=== PATIENT | male | born 1950 | race Caucasian/White ===

== ENCOUNTER 2017-12-28 09:11 | Emergency (ER) | payer MEDICARE ==
[~2017-12-28 09:11] MED LIST: ATOR20TA PO; BUPR100CR PO; FISH500C PO; NEXI40CA PO; PROZ20CA11 PO; QUET100 PO; SERO200T2 PO; TAB-TAB PO
[2017-12-28] MEDS ORDERED: IOHEXOL 350 MG/ML 10 ML VIAL (for RAD DIAG) IVCONTRAST ONE (09:12)
[2017-12-28 09:18] VITALS: BP 166/75; PULSE 49; RESP 16; TEMP 97.5; O2SAT 100
--- NOTE | 2017-12-28 10:02 | RADRPT ---
EXAM DATE/TIME: 12/28/2017 09:53 [facility] COMPARISON: No previous studies available for comparison. INDICATIONS : Chest pain. Cough. Bradycardia. MEDICAL HISTORY : Hypertension. SURGICAL HISTORY : Right ankle repair. ENCOUNTER: Initial ACUITY: 1 day PAIN SCORE: 9/10 LOCATION: middle chest FINDINGS: PA and lateral views of the chest demonstrate the lungs to be symmetrically aerated without evidence of mass, infiltrate or effusion. The cardiomediastinal contours are unremarkable. Osseous structure s are intact. CONCLUSION: No acute disease. Ray Kim MD on December 28, 2017 at 9:59 Board Certified Radiologist. This report was verified electronically.
[2017-12-28 10:54] LABS: BILIRUBIN, URINE NEG (NEG); BLOOD, URINE NEG (NEG); GLUCOSE,URINE NEG (NEG); KETONE, URINE NEG (NEG); MUCUS URINE FEW /lpf (OCC); NITRITE,URINE NEG (NEG); PH, URINE 7.5 (5.0-8.5); URINE COLOR YELLOW (YELLW/STRAW); URINE LEUKOCYTE ESTERASE NEG (NEG)
[2017-12-28 11:01] VITALS: BP 175/80; PULSE 48; RESP 18; O2SAT 98
[2017-12-28 11:05] LABS: ALKALINE PHOSPHATASE 96 U/L (45-117); TOTAL BILIRUBIN ADULT 0.7 MG/DL (0.2-1.0); TOTAL PROTEIN 7.4 GM/DL (6.4-8.2)
[2017-12-28 11:09] LABS: ALBUMIN 3.9 GM/DL (3.4-5.0); ALT (GPT) 28 U/L (12-78); AST (GOT) 37 U/L (15-37); BICARBONATE 26.5 MEQ/L (21.0-32.0); BLOOD UREA NITROGEN 12 MG/DL (7-18); CALCIUM 9.2 MG/DL (8.5-10.1); CHLORIDE 107 MEQ/L (98-107); CREATININE 1.12 MG/DL (0.60-1.30); GLOMERULAR FILTRATION RATE 65 ML/MIN (>89); GLUCOSE,RANDOM 81 MG/DL (74-106); SODIUM (NA) 141 MEQ/L (136-145)
--- NOTE | 2017-12-28 11:10 | PD ---
HPI Chief Complaint: GI Complaint Time Seen by Provider: 11:03 Travel History International Travel<30 days: No Contact w/Intl Traveler<30days: No Traveled to known affect area: No History of Present Illness HPI 67-year-old male with history of Pang's esophagus presents emergency department for evaluation of worsening burning in his chest and stomach pain. Patient states this is been worsening over the last month. He went to his GI specialist Dr. Menendez and and had an endoscopy 2 weeks ago. He was noted to have profound bradycardia and was sent to follow-up with Dr. Garcia, his data processing consultant. He states that they did not find anything new. He states that he contacted his GI specialist today because the burning is just getting intolerable. He states it is constant, 10 out of 10. Denies any fever chills. No vomiting. No bowel changes. Patient has no other symptoms to report. PFSH Past Medical History Arthritis: Yes Asthma: Yes Autoimmune Disease: No Blood Disorders: No Bipolar Disorder: Yes Anxiety: Yes Depression: Yes Heart Rhythm Problems: Yes Cancer: No Cardiovascular Problems: Yes (afib) High Cholesterol: Yes (STATES HE TAKES A GREEN PILL FOR HIGH CHOLESTEROL) Chemotherapy: No COPD: No Cerebrovascular Accident: No Diabetes: No Diminished Hearing: No Endocrine: No Gastrointestinal Disorders: Yes GERD: Yes Glaucoma: No Genitourinary: Yes Headaches: Yes Hepatitis: No Hiatal Hernia: No Heparin Induced Thrombocytopen: No Hypertension: Yes Immune Disorder: No Kidney Stones: No Medical other: Yes (GRED) Musculoskeletal: Yes Neurologic: Yes Psychiatric: Yes Reproductive: No Respiratory: Yes Immunizations Current: Yes Migraines: No Radiation Therapy: No Renal Failure: No Seizures: No Sickle Cell Disease: No Sleep Apnea: No Thyroid Disease: No Ulcer: No Past Surgical History Abdominal Aneurysm Repair: No Abdominal Surgery: No AICD: No Appendectomy: No Arteriovenous Shunt: No Cardiac Surgery: No Cholecystectomy: No Ear Surgery: No Endocrine Surgery: No Eye Surgery: No Genitourinary Surgery: No Gynecologic Surgery: No Insulin Pump: No Joint Replacement: No Neurologic Surgery: No Oral Surgery: No Pacemaker: No Thoracic Surgery: No Other Surgery: Yes (right foot neuroma removed ) Social History Alcohol Use: No Tobacco Use: Yes (QUIT LONG AGO) Substance Use: No Allergies-Medications (Allergen,Severity, Reaction): Coded Allergies: celecoxib (Unverified Allergy, Severe, RASH, 04/25/17) rofecoxib (Unverified Allergy, Severe, RASH, 04/25/17) Reported Meds & Prescriptions Reported Meds & Active Scripts Active Reported Lipitor (Atorvastatin Calcium) 20 Mg Tab 20 Mg PO HS Aciphex (Rabeprazole Sodium) 20 Mg Tab 20 Mg PO TID Dicyclomine (Dicyclomine HCl) 10 Mg Cap 10 Mg PO TID Reglan (Metoclopramide HCl) 10 Mg Tab 20 Mg PO TID Aspirin Adult Low Strength (Aspirin) 81 Mg Tabdr 81 Mg PO DAILY Lisinopril 10 Mg Tab 10 Mg PO BID Fish Oil 1200 mg ([place]-3 Fatty Acids) 360 Mg-1,200 Mg Cap 1 Cap PO BID Multiple Vitamin 1 Tab 1 Tab PO DAILY Review of Systems Except as stated in HPI: all other systems reviewed are Neg Physical Exam Narrative GENERAL: Well-nourished male patient with bizarre affect but in no acute distress. SKIN: Focused skin assessment warm/dry. HEAD: Atraumatic. Normocephalic. EYES: Pupils equal and round. No scleral icterus. No injection or drainage. ENT: No nasal bleeding or discharge. Mucous membranes pink and moist. NECK: Trachea midline. No JVD. CARDIOVASCULAR: Regular rate and rhythm. No murmur appreciated. RESPIRATORY: No accessory muscle use. Clear to auscultation. Breath sounds equal bilaterally. GASTROINTESTINAL: Abdomen soft, non-tender, nondistended. No guarding. No rebound tenderness. Hepatic and splenic margins not palpable. MUSCULOSKELETAL: No obvious deformities. No clubbing. No cyanosis. No edema. NEUROLOGICAL: Awake and alert. No obvious cranial nerve deficits. Motor grossly within normal limits. Normal speech. Data Data Last Documented VS Vital Signs Date Time Temp Pulse Resp B/P (MAP) Pulse Ox O2 Delivery O2 Flow Rate FiO2 12/28/17 13:33 47 18 158/75 (102) 99 Room Air 12/28/17 09:18 97.5 Orders Orders Electrocardiogram (12/28/17 ) Comprehensive Metabolic Panel (12/28/17 09:20) Lipase (12/28/17 09:20) Complete Blood Count With Diff (12/28/17 09:20) Urinalysis - C+S If Indicated (12/28/17 09:20) Chest, Pa & Lat (12/28/17 ) Act Partial Throm Time (Ptt) (12/28/17 09:20) Prothrombin Time / Inr (Pt) (12/28/17 09:20) Ct Abd/Pel W Iv Contrast(Rout) (12/28/17 ) Metoclopramide Inj (Reglan Inj) (12/28/17 11:30) Diphenhydramine Inj (Benadryl Inj) (12/28/17 11:30) Electrocardiogram (12/28/17 ) Troponin I (12/28/17 12:08) Ckmb (Isoenzyme) Profile (12/28/17 12:08) Iohexol 350 Inj (Omnipaque 350 Inj) (12/28/17 09:12) Al-Mag Hy-Si 40-40-4 Mg/Ml Liq (Mag-Al P (12/28/17 13:15) Lidocaine 2% Viscous (Xylocaine 2% Visco (12/28/17 13:15) CKMB (12/28/17 12:41) CKMB% (12/28/17 12:41) Ed Discharge Order (12/28/17 13:43) Labs Laboratory Tests Test 12/28/17 09:45 12/28/17 11:19 12/28/17 12:41 Urine Color YELLOW Urine Turbidity CLEAR Urine pH 7.5 Urine Specific [place] 1.019 Urine Protein TRACE mg/dL Urine Glucose (UA) NEG mg/dL Urine Ketones NEG mg/dL Urine Occult Blood NEG Urine Nitrite NEG Urine Bilirubin NEG Urine Urobilinogen LESS THAN 2.0 MG/DL Urine Leukocyte Esterase NEG Urine RBC 1 /hpf Urine WBC 1 /hpf Urine Mucus FEW /lpf Microscopic Urinalysis Comment CULT NOT INDICATED Blood Urea Nitrogen 12 MG/DL Creatinine 1.12 MG/DL Random Glucose 81 MG/DL Total Protein 7.4 GM/DL Albumin 3.9 GM/DL Calcium Level 9.2 MG/DL Alkaline Phosphatase 96 U/L Aspartate Amino Transf (AST/SGOT) 37 U/L Alanine Aminotransferase (ALT/SGPT) 28 U/L Total Bilirubin 0.7 MG/DL Sodium Level 141 MEQ/L Potassium Level 4.7 MEQ/L Chloride Level 107 MEQ/L Carbon Dioxide Level 26.5 MEQ/L Anion Gap 8 MEQ/L Estimat Glomerular Filtration Rate 65 ML/MIN Lipase 103 U/L White Blood Count 6.4 TH/MM3 Red Blood Count 4.59 MIL/MM3 Hemoglobin 14.8 GM/DL Hematocrit 43.5 % Mean Corpuscular Volume 94.8 FL Mean Corpuscular Hemoglobin 32.2 PG Mean Corpuscular Hemoglobin Concent 34.0 % Red Cell Distribution Width 13.6 % Platelet Count 199 TH/MM3 Mean Platelet Volume 9.4 FL Neutrophils (%) (Auto) 62.7 % Lymphocytes (%) (Auto) 24.3 % Monocytes (%) (Auto) 11.4 % Eosinophils (%) (Auto) 0.7 % Basophils (%) (Auto) 0.9 % Neutrophils # (Auto) 4.0 TH/MM3 Lymphocytes # (Auto) 1.6 TH/MM3 Monocytes # (Auto) 0.7 TH/MM3 Eosinophils # (Auto) 0.0 TH/MM3 Basophils # (Auto) 0.1 TH/MM3 CBC Comment DIFF FINAL Differential Comment Prothrombin Time 10.2 SEC Prothromb Time International Ratio 1.0 RATIO Activated Partial Thromboplast Time 23.1 SEC Total Creatine Kinase 129 U/L Creatine Kinase MB 1.5 NG/ML Troponin I 0.02 NG/ML MDM Medical Decision Making Medical Screen Exam Complete: Yes Emergency Medical Condition: Yes Medical Record Reviewed: Yes Differential Diagnosis Indigestion versus e esophagitis versus anxiety versus gastritis Narrative Course 67-year-old male presents emergency department for evaluation of abdominal pain and esophageal burning. Patient appears without distress. Vital signs are stable. Patient is noted to have bradycardia with flipped T waves in V3 through V6. I have contacted Dr. GARCIA because we have nothing to compare this to. He states this is normal for the patient and he will follow up with him in his office. Laboratory Tests Test 12/28/17 09:45 12/28/17 11:19 12/28/17 12:41 Urine Color YELLOW Urine Turbidity CLEAR Urine pH 7.5 Urine Specific [place] 1.019 Urine Protein TRACE mg/dL Urine Glucose (UA) NEG mg/dL Urine Ketones NEG mg/dL Urine Occult Blood NEG Urine Nitrite NEG Urine Bilirubin NEG Urine Urobilinogen LESS THAN 2.0 MG/DL Urine Leukocyte Esterase NEG Urine RBC 1 /hpf Urine WBC 1 /hpf Urine Mucus FEW /lpf Microscopic Urinalysis Comment CULT NOT INDICATED Blood Urea Nitrogen 12 MG/DL Creatinine 1.12 MG/DL Random Glucose 81 MG/DL Total Protein 7.4 GM/DL Albumin 3.9 GM/DL Calcium Level 9.2 MG/DL Alkaline Phosphatase 96 U/L Aspartate Amino Transf (AST/SGOT) 37 U/L Alanine Aminotransferase (ALT/SGPT) 28 U/L Total Bilirubin 0.7 MG/DL Sodium Level 141 MEQ/L Potassium Level 4.7 MEQ/L Chloride Level 107 MEQ/L Carbon Dioxide Level 26.5 MEQ/L Anion Gap 8 MEQ/L Estimat Glomerular Filtration Rate 65 ML/MIN Lipase 103 U/L White Blood Count 6.4 TH/MM3 Red Blood Count 4.59 MIL/MM3 Hemoglobin 14.8 GM/DL Hematocrit 43.5 % Mean Corpuscular Volume 94.8 FL Mean Corpuscular Hemoglobin 32.2 PG Mean Corpuscular Hemoglobin Concent 34.0 % Red Cell Distribution Width 13.6 % Platelet Count 199 TH/MM3 Mean Platelet Volume 9.4 FL Neutrophils (%) (Auto) 62.7 % Lymphocytes (%) (Auto) 24.3 % Monocytes (%) (Auto) 11.4 % Eosinophils (%) (Auto) 0.7 % Basophils (%) (Auto) 0.9 % Neutrophils # (Auto) 4.0 TH/MM3 Lymphocytes # (Auto) 1.6 TH/MM3 Monocytes # (Auto) 0.7 TH/MM3 Eosinophils # (Auto) 0.0 TH/MM3 Basophils # (Auto) 0.1 TH/MM3 CBC Comment DIFF FINAL Differential Comment Prothrombin Time 10.2 SEC Prothromb Time International Ratio 1.0 RATIO Activated Partial Thromboplast Time 23.1 SEC Total Creatine Kinase 129 U/L Creatine Kinase MB 1.5 NG/ML Troponin I 0.02 NG/ML Last Impressions Chest X-Ray 12/28/17 0000 Signed Impressions: Service Date/Time: December 09:53 - CONCLUSION: No acute disease. Ray Kim MD Abdomen/Pelvis CT 12/28/17 0000 Signed Impressions: Service Date/Time: December 12:09 - CONCLUSION: 1. No acute finding is identified within the abdomen or pelvis to explain the clinical symptoms. 2. There are multiple renal cysts bilaterally. The only indeterminate lesion is a 10 mm lesion at the left upper pole kidney. It does not have density measurements consistent with a simple cyst. Recommend correlating with any prior imaging studies that could confirm stability or offer additional characterization. If none are available consider a followup and further characterization with a renal ultrasound or a renal protocol MRI.. 3. Severe atherosclerotic disease. Refugio Turner MD Findings are discussed with the patient. He is encouraged to follow-up with primary care provider return immediately with acute worsening of symptoms. Diagnosis Primary Impression: Abdominal pain Qualified Codes: R10.13 - Epigastric pain Additional Impression: Bradycardia Referrals: [facility] Primary Care Physician Patient Instructions: Epigastric Pain (ED), General Instructions Additional Instructions: Follow-up with your primary care provider Continue all meds as already prescribed Follow-up with your atm servicer Follow-up with your data processing consultant Return immediately with any acute worsening symptoms Med/Other Pt SpecificInfo: No Change to Meds Disposition: 01 DISCHARGE HOME Condition: Stable HoustonEnriqueta GOEL Dec 28, 2017 11:10
[2017-12-28] MEDS ORDERED: diphenhydrAMINE HCL 50 MG/ML VIAL IV PUSH ONE (11:30)
[2017-12-28] MEDS ORDERED: METOCLOPRAMIDE HCL 10 MG/2 ML VIAL IV PUSH ONE (11:30)
[2017-12-28 11:40] LABS: BASOPHIL # 0.1 TH/MM3 (0-0.2); BASOPHIL % 0.9 % (0.0-2.0); EOSINOPHIL % 0.7 % (0.0-4.0); HEMATOCRIT 43.5 % (39.0-51.0); HEMOGLOBIN 14.8 GM/DL (13.0-17.0); LYMPH % 24.3 % (9.0-44.0); LYMPHOCYTE # 1.6 TH/MM3 (1.0-4.8); MEAN CELL VOLUME 94.8 FL (80.0-100.0); MEAN CORPUSCULAR HEMOGLOBIN 32.2 PG (27.0-34.0); MEAN PLATELET VOLUME 9.4 FL (7.0-11.0); MONO % 11.4 % (0.0-8.0); MONOCYTE # 0.7 TH/MM3 (0-0.9); NEUT % 62.7 % (16.0-70.0); PLATELET COUNT 199 TH/MM3 (150-450); RED BLOOD COUNT 4.59 MIL/MM3 (4.50-5.90); RED CELL DISTRIBUTION WIDTH 13.6 % (11.6-17.2); WHITE BLOOD COUNT 6.4 TH/MM3 (4.0-11.0)
[2017-12-28 11:50] LABS: PROTHROMBIN TIME - PATIENT 10.2 SEC (9.8-11.6)
[2017-12-28] MEDS ORDERED: ASPI81TA16 PO (12:00)
[2017-12-28] MEDS ORDERED: LISI10TA3 PO (12:00)
[2017-12-28] MEDS ORDERED: FISH1200 PO (12:00)
[2017-12-28] MEDS ORDERED: ACIP20TA19 PO (12:00)
[2017-12-28] MEDS ORDERED: REGL10TA5 PO (12:00)
[2017-12-28] MEDS ORDERED: MULTTAB67 PO (12:00)
[2017-12-28] MEDS ORDERED: LIPI20TA PO (12:00)
[2017-12-28] MEDS ORDERED: DICY10CA12 PO (12:00)
--- NOTE | 2017-12-28 12:39 | RADRPT ---
EXAM DATE/TIME: 12/28/2017 12:09 [facility] COMPARISON: No previous studies available for comparison. INDICATIONS : Abdomen pain, rectal pain. IV CONTRAST: 72 cc Omnipaque 350 (iohexol) IV ORAL CONTRAST: No oral contrast ingested. RADIATION DOSE: 6.67 CTDIvol (mGy) MEDICAL HISTORY : Cardiovascular disease. Hypertension. Asthma, Barretts esophagus SURGICAL HISTORY : None. ENCOUNTER: Initial ACUITY: 1 day PAIN SCALE: 9/10 LOCATION: Abdomen TECHNIQUE: Volumetric scanning of the abdomen and pelvis was performed. Using automated exposure control and ad justment of the mA and/or kV according to patient size, radiation dose was kept as low as reasonably achievable to obtain optimal diagnostic quality images. DICOM format image data is available electro nically for review and comparison. FINDINGS: LOWER LUNGS: The visualized lower lungs are clear. LIVER: Homogeneous density without lesion. There is no dilation of the biliary tree. No calcified gallston es. SPLEEN: Normal size without lesion. PANCREAS: Within normal limits. KIDNEYS: Normal in size and shape. There is no hydronephrosis or stone. In the right kidney there are several low-density lesions measuring up to 5.3 cm. On density measurements consistent with cysts. In the lef t kidney there are 4 low-density lesions measuring up to 4.2 cm. All except for one have density jolanta urements consistent with cysts. At the upper pole of the left kidney along the lateral cortex there i s a 10 mm low density lesion which has Hounsfield measurements in the mid 30s. ADRENAL GLANDS: Within normal limits. VASCULAR: There is no aortic aneurysm. There is severe atherosclerotic disease. BOWEL/MESENTERY: The stomach, small bowel, and colon demonstrate no acute abnormality. There is no free intraperitone al air or fluid. The appendix is normal. The rectum demonstrates no abnormality. ABDOMINAL WALL: Within normal limits. RETROPERITONEUM: There is no lymphadenopathy. BLADDER: No wall thickening or mass. REPRODUCTIVE: Within normal limits. INGUINAL: There is no lymphadenopathy or hernia. MUSCULOSKELETAL: There are degenerative changes of the lumbar spine with severe degenerative disc disease at L4-L5. CONCLUSION: 1. No acute finding is identified within the abdomen or pelvis to explain the clinical symptoms. 2. There are multiple renal cysts bilaterally. The only indeterminate lesion is a 10 mm lesion at the left upper pole kidney. It does not have density measurements consistent with a simple cyst. Recomme nd correlating with any prior imaging studies that could confirm stability or offer additional charac terization. If none are available consider a followup and further characterization with a renal ultra sound or a renal protocol MRI.. 3. Severe atherosclerotic disease. Refugio Turner MD on December 28, 2017 at 12:30 Board Certified Radiologist. This report was verified electronically.
[2017-12-28] MEDS ORDERED: LIDOCAINE VISCOUS 2% SOLN 15 ML UDC PO ONE (13:15)
[2017-12-28] MEDS ORDERED: ALUMINUM/MAGNESIUM/SIMETH 30 ML CUP PO ONE (13:15)
[2017-12-28 13:17] LABS: TROPONIN I 0.02 NG/ML (0.02-0.05)
[2017-12-28 13:33] VITALS: BP 158/75; PULSE 47; RESP 18; O2SAT 99
--- NOTE | 2017-12-28 15:46 | EKG ---
Date Performed: 12/28/2017 Time Performed: 09:28:03 PTAGE: 67 years EKG: SINUS/ECTOPIC BRADYCARDIA WITH SHORT CA INTERVAL ST DEVIATION AND MARKED T-WAVE ABNORMALITY , CONSIDER ANTEROLATERAL ISCHEMIA When compared to previous tracing, sinus rate is slower and Anterla teral T wave abnormalities are new, consider ischemia. ABNORMAL ECG PREVIOUS TRACING : 12/28/2009 14.13.22 DOCTOR: Luis Ingram Interpretating Date/Time 12/28/2017 15:44:23
--- NOTE | 2017-12-30 09:26 | EKG ---
Date Performed: 12/28/2017 Time Performed: 10:53:10 PTAGE: 67 years EKG: SINUS BRADYCARDIA WITH SHORT VT INTERVAL ST DEVIATION AND MARKED T-WAVE ABNORMALITY, CONSID ER ANTEROLATERAL ISCHEMIA ABNORMAL ECG PREVIOUS TRACING : 10/23/2009 14.13 DOCTOR: Roselyn Brennan Interpretating Date/Time 12/30/2017 09:19:00
== END 2017-12-28 14:14 | disposition home or self-care (01) ==
LOC: NEPE 09:11
DX: R10.13 Epigastric pain (principal); R00.1 Bradycardia, unspecified; I10 Essential (primary) hypertension; K22.70 Barrett's esophagus without dysplasia; K21.9 Gastro-esophageal reflux disease without esophagitis; R94.31 Abnormal electrocardiogram [ECG] [EKG]; J45.909 Unspecified asthma, uncomplicated; N28.1 Cyst of kidney, acquired
CPT/HCPCS: 71046; 74177; 80053; 81001; 82550; 82552; 83690; 84484; 85025; 85610; 85730; 93005; 96374; 96375; 99285; J1200; J2765; Q9967